=== PATIENT | male | born 1970 | race Caucasian/White ===

== ENCOUNTER 2019-02-20 15:14 | Inpatient (IN) | payer BC ==
[~2019-02-20] VITALS: Ht 190.5 cm; Wt 98.4 kg
[2019-02-20 15:19] VITALS: Ht 190.5 cm; Wt 98.4 kg
[2019-02-20 16:24] LABS: CALCIUM 9.1 mg/dL (8.5-10.1); CARBON DIOXIDE 26.9 mmol/L (21-32); CHLORIDE SERUM 99 mmol/L (98-107); CREATININE SERUM 1.3 mg/dL (0.7-1.3); GFR1 > 60 mL/min; GLUCOSE SERUM 104 mg/dL (74-106); POTASSIUM SERUM 3.6 mmol/L (3.5-5.1); SODIUM SERUM 136 mmol/L (136-145)
[2019-02-20 16:25] LABS: BASOPHIL % 0.4 % (0-2); PLATELET COUNT 288 x10^3mcL (130-400); RED CELL DISTRIBUTION WIDTH 12.9 % (11.5-14.5)
[2019-02-20 16:35] LABS: ALBUMIN 3.9 g/dL (3.4-5.0); ALKALINE PHOSPHATASE 52 U/L (46-116); ALT/SGPT 37 U/L (16-63); AST/SGOT 15 U/L (15-37); BILIRUBIN TOTAL 0.7 mg/dL (0.20-1.00); CHOLESTEROL 198 mg/dL (<200); HDL CHOLESTEROL 40 mg/dL (40-60); LIPASE 91 IU/L (73-393); T4(THYROXINE) 7.8 ug/dL (4.7-13.3)
[2019-02-20 18:11] LABS: microscopic required? NO
[2019-02-20] MEDS ORDERED: LISINOPRIL2.5 MG (18:13)
[2019-02-20 18:18] LABS: UA SPECIFIC GRAVITY 1.015 (1.005-1.035); urine erythrocyte NEGATIVE (NEGATIVE)
[2019-02-20 18:29] LABS: AMPHETAMINE QUAL UR NONE DETECTED (See below)
[2019-02-20 19:07] VITALS: BP 142/94
[2019-02-20 21:59] VITALS: BP 118/87
[2019-02-21 05:38] VITALS: BP 102/71
[2019-02-21 07:38] LABS: BASOPHIL % 0.3 % (0-2); PLATELET COUNT 253 x10^3mcL (130-400); RED CELL DISTRIBUTION WIDTH 12.9 % (11.5-14.5)
[2019-02-21 07:44] LABS: CARBON DIOXIDE 26.9 mmol/L (21-32); CHLORIDE SERUM 102 mmol/L (98-107); CREATININE SERUM 1.3 mg/dL (0.7-1.3); GFR1 > 60 mL/min; GLUCOSE SERUM 97 mg/dL (74-106); MAGNESIUM 2.1 mg/dL (1.8-2.4); PHOSPHOROUS 3.7 mg/dL (2.5-4.9); POTASSIUM SERUM 4.2 mmol/L (3.5-5.1); SODIUM SERUM 139 mmol/L (136-145)
[2019-02-21 13:33] VITALS: BP 130/93
[2019-02-21 18:07] VITALS: BP 133/88
[2019-02-21 22:33] VITALS: BP 135/88
[2019-02-22 05:26] VITALS: BP 131/87
[2019-02-22] MEDS ORDERED: CARAFATE1 GM PO (06:49)
[2019-02-22] MEDS ORDERED: EPZICOM1 TAB (06:50)
[2019-02-22] MEDS ORDERED: OMEPRAZOLE40 M1 PO (06:50)
[2019-02-22 06:56] LABS: BASOPHIL % 0.5 % (0-2); PLATELET COUNT 258 x10^3mcL (130-400); RED CELL DISTRIBUTION WIDTH 12.9 % (11.5-14.5)
[2019-02-22 07:06] LABS: CALCIUM 8.9 mg/dL (8.5-10.1); CARBON DIOXIDE 25.6 mmol/L (21-32); CHLORIDE SERUM 104 mmol/L (98-107); CREATININE SERUM 1.1 mg/dL (0.7-1.3); GFR1 > 60 mL/min; GLUCOSE SERUM 94 mg/dL (74-106); MAGNESIUM 2.1 mg/dL (1.8-2.4); PHOSPHOROUS 3.6 mg/dL (2.5-4.9); POTASSIUM SERUM 4.2 mmol/L (3.5-5.1); SODIUM SERUM 139 mmol/L (136-145)
[2019-02-22 08:29] VITALS: BP 144/97
[2019-02-22 14:00] VITALS: BP 138/92
[2019-02-23] MEDS ORDERED: ZESTRIL5 MG PO (12:27)
== END 2019-02-22 15:15 | disposition home or self-care (01) | DRG 377 ==
LOC: ED 15:14 → DU 17:45
PROVIDERS: Emergency Medicine; Internal Medicine Gastroenterology; ADMIT Internal Medicine
PROC: 0DB68ZX Excision of Stomach, Via Natural or Artificial Opening Endoscopic, Diagnostic (ICD-10-PCS; principal; 2019-02-21 08:00)
PROC: 0DBF8ZZ Excision of Right Large Intestine, Via Natural or Artificial Opening Endoscopic (ICD-10-PCS; 2019-02-22 12:00)
DX: K25.4 Chronic or unspecified gastric ulcer with hemorrhage (principal); N17.0 Acute kidney failure with tubular necrosis; K64.4 Residual hemorrhoidal skin tags; K62.5 Hemorrhage of anus and rectum; K44.9 Diaphragmatic hernia without obstruction or gangrene; K64.8 Other hemorrhoids; D50.0 Iron deficiency anemia secondary to blood loss (chronic); I10 Essential (primary) hypertension
CPT/HCPCS: 43235; 45378; 82962; 83880; G0480; J1200; J1610; J1885; J2250; J2310; J3010; J3490; J7030; Q0092

== ENCOUNTER 2019-02-23 09:41 | Inpatient (IN) | payer BC ==
[~2019-02-23] VITALS: Ht 190.5 cm; Wt 97.5 kg
[~2019-02-23 09:41] MED LIST: CARAFATE1 GM PO; EPZICOM1 TAB; LISINOPRIL2.5 MG; OMEPRAZOLE40 M1 PO
[2019-02-23 09:45] VITALS: Ht 190.5 cm; Wt 97.5 kg
[2019-02-23 10:37] LABS: PLATELET COUNT 273 x10^3mcL (130-400); RED CELL DISTRIBUTION WIDTH 12.8 % (11.5-14.5)
[2019-02-23 10:39] LABS: CALCIUM 8.9 mg/dL (8.5-10.1); CARBON DIOXIDE 26.1 mmol/L (21-32); CHLORIDE SERUM 99 mmol/L (98-107); CREATININE SERUM 1.2 mg/dL (0.7-1.3); GFR1 > 60 mL/min; GLUCOSE SERUM 111 mg/dL (74-106); POTASSIUM SERUM 3.7 mmol/L (3.5-5.1); SODIUM SERUM 135 mmol/L (136-145)
[2019-02-23 10:44] LABS: ALBUMIN 3.7 g/dL (3.4-5.0); ALKALINE PHOSPHATASE 48 U/L (46-116); ALT/SGPT 32 U/L (16-63); AST/SGOT 16 U/L (15-37); BILIRUBIN TOTAL 1.5 mg/dL (0.20-1.00); TOTAL PROTEIN, SERUM 6.9 g/dL (6.4-8.2)
[2019-02-23] MEDS ORDERED: ZESTRIL5 MG PO (12:27)
[2019-02-23 13:16] VITALS: BP 140/86
[2019-02-23 13:25] LABS: BAND NEUTROPHIL 11 % (0-10); MONOCYTE 5 % (0-7); PLATELET MORPHOLOGY PLATELETS NORMAL; SEGMENTED NEUTROPHILS 80 % (37-75); rbc morphology (normal/abnorm) NORMAL (NORMAL)
[2019-02-23 13:43] LABS: MAGNESIUM 1.8 mg/dL (1.8-2.4); PHOSPHOROUS 3.8 mg/dL (2.5-4.9)
[2019-02-23 15:59] VITALS: BP 131/58
[2019-02-23 17:00] LABS: microscopic required? NO
[2019-02-23 17:10] LABS: UA SPECIFIC GRAVITY 1.025 (1.005-1.035); urine erythrocyte NEGATIVE (NEGATIVE)
[2019-02-23 19:05] VITALS: BP 127/85
[2019-02-23 20:41] VITALS: BP 131/82
[2019-02-24 04:31] VITALS: BP 133/86
[2019-02-24 06:20] LABS: PLATELET COUNT 259 x10^3mcL (130-400); RED CELL DISTRIBUTION WIDTH 13.5 % (11.5-14.5)
[2019-02-24 06:36] LABS: CALCIUM 8.2 mg/dL (8.5-10.1); CARBON DIOXIDE 22.6 mmol/L (21-32); CHLORIDE SERUM 103 mmol/L (98-107); CREATININE SERUM 1.3 mg/dL (0.7-1.3); GFR1 > 60 mL/min; GLUCOSE SERUM 131 mg/dL (74-106); MAGNESIUM 1.6 mg/dL (1.8-2.4); PHOSPHOROUS 3.3 mg/dL (2.5-4.9); SODIUM SERUM 136 mmol/L (136-145)
[2019-02-24 08:27] LABS: BAND NEUTROPHIL 14 % (0-10); BASOPHIL 0 % (0-2); MONOCYTE 3 % (0-7); SEGMENTED NEUTROPHILS 79 % (37-75)
[2019-02-24 08:28] LABS: PLATELET MORPHOLOGY PLATELETS NORMAL; rbc morphology (normal/abnorm) NORMAL (NORMAL)
[2019-02-24 09:22] VITALS: BP 126/85
[2019-02-24 16:22] VITALS: BP 137/83
[2019-02-24 19:35] VITALS: BP 133/85
[2019-02-25 06:03] VITALS: BP 126/82
[2019-02-25 06:17] LABS: PLATELET COUNT 271 x10^3mcL (130-400); RED CELL DISTRIBUTION WIDTH 13.2 % (11.5-14.5)
[2019-02-25 06:34] LABS: BASOPHIL % 0 % (0-2)
[2019-02-25 06:53] LABS: CALCIUM 8.6 mg/dL (8.5-10.1); CARBON DIOXIDE 27.2 mmol/L (21-32); CHLORIDE SERUM 98 mmol/L (98-107); CREATININE SERUM 1.3 mg/dL (0.7-1.3); GFR1 > 60 mL/min; GLUCOSE SERUM 139 mg/dL (74-106); MAGNESIUM 1.8 mg/dL (1.8-2.4); PHOSPHOROUS 1.8 mg/dL (2.5-4.9); POTASSIUM SERUM 3.6 mmol/L (3.5-5.1); SODIUM SERUM 135 mmol/L (136-145)
[2019-02-25 09:28] VITALS: BP 129/76
[2019-02-25 13:04] VITALS: BP 145/95
[2019-02-25 16:22] VITALS: BP 139/86
[2019-02-25 20:46] VITALS: BP 133/85
[2019-02-26 05:47] VITALS: BP 130/87
[2019-02-26 06:24] LABS: BASOPHIL % 0.1 % (0-2); PLATELET COUNT 316 x10^3mcL (130-400); RED CELL DISTRIBUTION WIDTH 13.5 % (11.5-14.5)
[2019-02-26 06:30] LABS: CALCIUM 8.8 mg/dL (8.5-10.1); CARBON DIOXIDE 28.7 mmol/L (21-32); CHLORIDE SERUM 97 mmol/L (98-107); CREATININE SERUM 1.1 mg/dL (0.7-1.3); GFR1 > 60 mL/min; GLUCOSE SERUM 138 mg/dL (74-106); POTASSIUM SERUM 3.3 mmol/L (3.5-5.1); SODIUM SERUM 126 mmol/L (136-145)
[2019-02-26 10:00] VITALS: BP 135/92
[2019-02-26 13:42] VITALS: BP 136/83
[2019-02-26 17:16] VITALS: BP 145/88
[2019-02-26 20:56] VITALS: BP 136/92
[2019-02-27 05:35] VITALS: BP 117/74
[2019-02-27 06:17] LABS: BASOPHIL % 0.2 % (0-2); PLATELET COUNT 362 x10^3mcL (130-400); RED CELL DISTRIBUTION WIDTH 13.9 % (11.5-14.5)
[2019-02-27 06:31] LABS: CALCIUM 8.6 mg/dL (8.5-10.1); CARBON DIOXIDE 26.6 mmol/L (21-32); CHLORIDE SERUM 101 mmol/L (98-107); CREATININE SERUM 1.1 mg/dL (0.7-1.3); GFR1 > 60 mL/min; GLUCOSE SERUM 110 mg/dL (74-106); POTASSIUM SERUM 3.2 mmol/L (3.5-5.1); SODIUM SERUM 136 mmol/L (136-145)
[2019-02-27 09:40] VITALS: BP 125/81
[2019-02-27 13:58] VITALS: BP 128/78
[2019-02-27 16:07] VITALS: BP 117/80
[2019-02-27 21:06] VITALS: BP 127/78
[2019-02-28 05:21] VITALS: BP 136/85
[2019-02-28 05:54] LABS: RED CELL DISTRIBUTION WIDTH 13.3 % (11.5-14.5)
[2019-02-28 06:40] LABS: CALCIUM 8.6 mg/dL (8.5-10.1); CARBON DIOXIDE 25.1 mmol/L (21-32); CHLORIDE SERUM 102 mmol/L (98-107); CREATININE SERUM 0.9 mg/dL (0.7-1.3); GFR1 > 60 mL/min; GLUCOSE SERUM 108 mg/dL (74-106); POTASSIUM SERUM 3.5 mmol/L (3.5-5.1); SODIUM SERUM 137 mmol/L (136-145)
[2019-02-28 07:31] LABS: PLATELET COUNT 405 x10^3mcL (130-400)
[2019-02-28 10:30] VITALS: BP 137/86
[2019-02-28 13:56] LABS: BAND NEUTROPHIL 0 % (0-10); BASOPHIL 0 % (0-2); MONOCYTE 11 % (0-7); MYELOCYTE 1 % (0-2); SEGMENTED NEUTROPHILS 76 % (37-75)
[2019-02-28 13:58] LABS: PLATELET MORPHOLOGY PLATELETS NORMAL; rbc morphology (normal/abnorm) ABNORMAL (NORMAL); target cell (codocyte) 1+
[2019-02-28 16:38] VITALS: BP 136/85
[2019-02-28 19:35] VITALS: BP 151/87
[2019-03-01 06:06] VITALS: BP 138/86
[2019-03-01] MEDS ORDERED: AUG500 PO (08:46)
[2019-03-01] MEDS ORDERED: IBUPROFEN400 MG PO (08:46)
[2019-03-01] MEDS ORDERED: FLAGYL250 MG PO (08:47)
[2019-03-01 09:35] VITALS: BP 141/84
[2019-03-01 13:50] VITALS: BP 141/84
== END 2019-03-01 14:45 | disposition home health service (06) | DRG 853 ==
LOC: ED 09:41 → DU 12:18 → MU 12:18 → DU 12:56 → MU 02-27 07:50
PROVIDERS: Emergency Medicine; General Practice; ADMIT Internal Medicine
PROC: 0DQK0ZZ Repair Ascending Colon, Open Approach (ICD-10-PCS; principal; 2019-02-24)
PROC: 0D1K0Z4 Bypass Ascending Colon to Cutaneous, Open Approach (ICD-10-PCS; 2019-02-24)
DX: A41.9 Sepsis, unspecified organism (principal); K63.1 Perforation of intestine (nontraumatic); K65.9 Peritonitis, unspecified; R65.20 Severe sepsis without septic shock; I10 Essential (primary) hypertension; D64.9 Anemia, unspecified
CPT/HCPCS: J0330; J1170; J1650; J1885; J1956; J2250; J2270; J2405; J2543; J2704; J2710; J2916; J3010; J3480; J3490; J7030; J7050; J7120; Q9967